=== PATIENT | male | born 1990 | race Caucasian/White ===

== ENCOUNTER 2024-07-31 13:21 | Emergency (ER) | payer OTHER ==
[2024-07-31] MEDS: Silver Sulfadiazine 1% Crm 20 GM Tube TOP ONE (13:30)
[2024-07-31] MEDS: HYDROmorphone 1 MG/ML Syringe IM ONE (13:36)
== END 2024-07-31 14:47 | disposition home or self-care (01) ==
LOC: LB.ED 13:21
DX: T23.262A Burn of second degree of back of left hand, initial encounter (principal); T23.201A Burn of second degree of right hand, unspecified site, initial encounter; T20.16XA Burn of first degree of forehead and cheek, initial encounter; T31.0 Burns involving less than 10% of body surface; Z90.49 Acquired absence of other specified parts of digestive tract; X16.XXXA Contact with hot heating appliances, radiators and pipes, initial encounter
CPT/HCPCS: 16020; 96372; 99283; J1171; A9270-GY